=== PATIENT | male | born 1960 | race Caucasian/White ===

== ENCOUNTER 2020-12-23 12:02 | Outpatient (CLI) | payer OTHER, SELFPAY ==
--- NOTE | 2020-12-23 12:15 | XR_ITS ---
WS: [id number] Exam: XR shoulder RT min 2V* [id number] Date/Time of Exam: 12/23/2020 12:30 PM Reason For Exam: PAIN RIGHT SHOULDER No acute fracture or dislocation. There is degenerative change of the AC joint and the glenohumeral j oint. Normal soft tissues. XR/XR shoulder RT min 2V* [id number] IMPRESSION: 1. Degenerative changes. No fracture or dislocation.
== END 2020-12-23 12:03 | disposition home or self-care (01) ==
PROVIDERS: PCP Nurse Practitioner Primary Care; Visit Provider Nurse Practitioner Primary Care
DX: M25.511 Pain in right shoulder (principal)
CPT/HCPCS: 73030